=== PATIENT | male | born 1985 | race Caucasian/White ===

== ENCOUNTER 2020-11-12 23:16 | Emergency (ER) | payer MEDICAID, OTHER ==
--- NOTE | 2020-11-12 23:20 | NUR ---
Patient was called to be triaged but was not present in the waiting room or outside of ER.
--- NOTE | 2020-11-12 23:35 | NUR ---
Patient was called to be traiged but was not present.
--- NOTE | 2020-11-12 23:40 | NUR ---
Patient was not present. Patient Was NOT TRIAGED OR SEEN BY ERMD.
== END 2020-11-12 23:54 | disposition left against medical advice (07) ==
LOC: ER 23:19
DX: Z53.21 Procedure and treatment not carried out due to patient leaving prior to being seen by health care provider (principal)

== ENCOUNTER 2021-01-20 19:59 | Emergency (ER) | payer OTHER ==
[~2021-01-20] VITALS: Ht 188 cm; Wt 97.5 kg
--- NOTE | 2021-01-20 21:15 | NUR ---
Patient was waiting outside with due to no beds available in the ER. He came up to the registration window and stated "I don't want to wait anymore. I am leaving and will come back if I get worse." Patient left without being seen by ERMD.
== END 2021-01-20 21:30 | disposition left against medical advice (07) ==
LOC: ER 20:01
DX: Z53.21 Procedure and treatment not carried out due to patient leaving prior to being seen by health care provider (principal)